=== PATIENT | female | born 1985 | race Caucasian/White ===

== ENCOUNTER 2016-12-16 09:06 | Emergency (ER) | payer BC, MEDICAID ==
[~2016-12-16] VITALS: Ht 167.6 cm; Wt 100.0 kg
[~2016-12-16 09:06] MED LIST: HYDR-3240 PO; ONDA4TAB7 PO; OXYC-302 PO; PREN1TAB56 PO
[2016-12-16] MEDS ORDERED: HYDROmorphone 1 MG/ML, 1ML ONE ×3 (09:52→13:20)
[2016-12-16] MEDS ORDERED: FAMOTIDINE 20 MG/2 ML ONE ×2 (09:53→09:57)
[2016-12-16] MEDS ORDERED: ONDANSETRON 2MG/ML, 2ML ONE ×2 (09:53→09:57)
[2016-12-16] MEDS ORDERED: ZIPRASIDONE 20 MG INJ IM ONE ×2 (09:54→10:00)
[2016-12-16] MEDS ORDERED: ONDANSETRON 2MG/ML, 2ML IVPush ONE (10:00)
[2016-12-16] MEDS ORDERED: FAMOTIDINE 20 MG/2 ML IVP ONE (10:00)
[2016-12-16] MEDS ORDERED: SODIUM CHLORIDE 0.9% 1,000ML IVBOLUS ONE (10:00)
[2016-12-16] MEDS: HYDROmorphone 1 MG/ML, 1ML IVPush PRN ×2 (10:02→13:25)
[2016-12-16 10:29] LABS: HEMOGLOBIN 15.5 g/dL (11.7-16.4); WHITE BLOOD COUNT 7.6 x10^3/uL (3.4-10)
[2016-12-16 10:38] LABS: ASPARTATE AMINO TRANSFERASE 15 U/L (15-37); BLOOD UREA NITROGEN 13 mg/dL (7-18)
[2016-12-16 14:43] VITALS: BP 97/51
== END 2016-12-16 14:44 | disposition home or self-care (01) ==
LOC: ED 11:53
DX: R10.84 Generalized abdominal pain (principal); E86.0 Dehydration; F17.210 Nicotine dependence, cigarettes, uncomplicated; F41.9 Anxiety disorder, unspecified; Z90.49 Acquired absence of other specified parts of digestive tract
CPT/HCPCS: 36415; 76830; 80053; 81001; 84703; 85025; 87086; 96361; 96372; 96374; 96375; 99285; J1170; J2405; J3486; J7030; S0028

== ENCOUNTER 2018-10-05 07:50 | Inpatient (IN) | payer MEDICAID ==
[~2018-10-05] VITALS: Ht 167.6 cm; Wt 100.0 kg
[2018-10-05] MEDS ORDERED: HALOPERIDOL 5 MG/ML ONE (08:29)
[2018-10-05] MEDS ORDERED: PROMETHAZINE 25 MG/ML, 1ML ONE (08:29)
[2018-10-05] MEDS ORDERED: DIPHENHYDRAMINE 50 MG/ML, 1ML ONE (08:29)
[2018-10-05] MEDS ORDERED: PROMETHAZINE 25 MG/ML, 1ML IM ONE (08:30)
[2018-10-05] MEDS ORDERED: DIPHENHYDRAMINE 50 MG/ML, 1ML IVPush ONE (08:30)
[2018-10-05] MEDS ORDERED: SODIUM CHLORIDE 0.9% 1,000ML IVBOLUS ONE (08:30)
[2018-10-05] MEDS ORDERED: HALOPERIDOL 5 MG/ML IM PRN (08:30)
--- NOTE | 2018-10-05 08:53 | NUR ---
MEDS GIVEN, IV INFUSING SLOWLY HOT PACK GIVEN.
[2018-10-05 09:00] LABS: BASOPHILS # (AUTO) 0.04 x10^3/uL (0-0.1); BASOPHILS % (AUTO) 1 % (0-1); EOSINOPHILS # (AUTO) 0.11 x10^3/uL (0-0.4); EOSINOPHILS % (AUTO) 1 % (1-7); LYMPHOCYTES # (AUTO) 2.27 x10^3/uL (1-3.4); LYMPHOCYTES % (AUTO) 27 % (22-44); MD NO; MEAN CORPUSCULAR HGB CONC 33.4 g/dL (32.4-35.8); MEAN CORPUSCULAR VOLUME 86.8 fL (80-100); MEAN PLATELET VOLUME 7.3 fL (7.4-10.4); MONOCYTES # (AUTO) 0.63 x10^3/uL (0.2-0.8); MONOCYTES % (AUTO) 8 % (2-9); NEUTROPHILS # (AUTO) 5.28 x10^3/uL (1.8-6.8); NEUTROPHILS % (AUTO) 63 % (42-75); PLATELET COUNT 310 x10^3/uL (130-400); RED BLOOD COUNT 5.19 x10^6/uL (3.82-5.3); RED CELL DISTRIBUTION WIDTH 12.3 % (9.6-15.2)
[2018-10-05 09:08] LABS: ANION GAP 8 mmol/L (5-15); CALCIUM 8.9 mg/dL (8.5-10.1); CHLORIDE 111 mmol/L (98-107); CREATININE 1.13 mg/dL (0.55-1.02)
[2018-10-05 09:09] LABS: ALANINE AMINOTRANSFERASE 26 U/L (12-78); ALBUMIN 4.2 g/dL (3.4-5.0)
[2018-10-05 09:11] LABS: ALKALINE PHOSPHATASE 87 U/L (45-117); BILIRUBIN,TOTAL 0.6 mg/dL (0.2-1.0); TOTAL PROTEIN 7.7 g/dL (6.4-8.2)
--- NOTE | 2018-10-05 09:37 | NUR ---
REPORT FROM FLOYD CLOUD, ASSUME CARE AT THIS TIME.
[2018-10-05 09:40] LABS: MICROSCOPIC NOT IND
[2018-10-05 09:59] LABS: CULTURE INDICATED? NO
[2018-10-05] MEDS ORDERED: METOCLOPRAMIDE 5 MG/ML, 2ML IVPush ONE (10:00)
[2018-10-05] MEDS ORDERED: KETOROLAC 30 MG/1 ML IVPush ONE (10:00)
[2018-10-05] MEDS ORDERED: METOCLOPRAMIDE 5 MG/ML, 2ML ONE (10:18)
[2018-10-05] MEDS ORDERED: KETOROLAC 30 MG/1 ML ONE (10:18)
--- NOTE | 2018-10-05 10:26 | NUR ---
PT MEDICATED FOR RETURNING NAUSEA AND PERSISTENT PAIN. PT GIVEN ADDITIONAL WARM BLANKET, PILLOW PER REQUEST. VS UPDATED IN COMPUTER.
--- NOTE | 2018-10-05 11:21 | NUR ---
ORDER FOR ADMIT IN COMPUTER.
[2018-10-05] MEDS ORDERED: ACETAMINOPHEN 325 MG TABLET PO PRN (12:00)
[2018-10-05] MEDS ORDERED: hydrALAzine 20 MG/ML, 1ML IVPush PRN (12:00)
[2018-10-05] MEDS ORDERED: GUAIFENESIN/COD200MG-20MG/10ML LIQUID PO PRN (12:00)
[2018-10-05] MEDS ORDERED: BUTALB/APAP/CAFFEINE 50MG/325MG/40MG PO PRN (12:00)
[2018-10-05] MEDS ORDERED: DOCUSATE 100 MG CAPSULE PO PRN (12:00)
[2018-10-05] MEDS ORDERED: METOCLOPRAMIDE 5 MG/ML, 2ML IVPush PRN (12:00)
--- NOTE | 2018-10-05 12:37 | NUR ---
REPORT TO CLYDE CLOUD, PT READY FOR TRANSPORT TO FLOOR.
[2018-10-05] MEDS: LACTATED RINGERS 1,000 ML IV SCH ×3 (13:07→23:32)
[2018-10-05] MEDS: ENOXAPARIN 40 MG/0.4 ML SQ SCH (13:30)
[2018-10-05 14:00] VITALS: BP 128/83
[2018-10-05] MEDS ORDERED: BUSP15TA PO (14:46)
[2018-10-05] MEDS ORDERED: HYDR50TA13 PO (14:46)
[2018-10-05] MEDS ORDERED: CYCL-259 PO (14:46)
[2018-10-05] MEDS ORDERED: VILA20TA PO (14:46)
[2018-10-05] MEDS: KETOROLAC 30 MG/1 ML IV PRN (15:39)
[2018-10-05] MEDS: ONDANSETRON 2MG/ML, 2ML IVPush PRN (15:39)
[2018-10-05 15:44] VITALS: BP 128/83
[2018-10-05 19:43] VITALS: BP 104/70
[2018-10-05] MEDS: DOXEPIN 100 MG CAPSULE PO SCH (20:16)
[2018-10-05] MEDS ORDERED: CYCLOBENZAPRINE 10 MG TABLET PO PRN (21:30)
[2018-10-06 02:19] VITALS: BP 113/73
[2018-10-06] MEDS: LACTATED RINGERS 1,000 ML IV SCH ×2 (04:44→12:44)
[2018-10-06 05:31] LABS: BASOPHILS # (AUTO) 0.04 x10^3/uL (0-0.1); BASOPHILS % (AUTO) 1 % (0-1); EOSINOPHILS # (AUTO) 0.17 x10^3/uL (0-0.4); EOSINOPHILS % (AUTO) 3 % (1-7); LYMPHOCYTES # (AUTO) 3.03 x10^3/uL (1-3.4); LYMPHOCYTES % (AUTO) 47 % (22-44); MD NO; MEAN CORPUSCULAR HEMOGLOBIN 29.1 pg (27.0-34.8); MEAN CORPUSCULAR VOLUME 88.4 fL (80-100); MEAN PLATELET VOLUME 7.2 fL (7.4-10.4); MONOCYTES # (AUTO) 0.52 x10^3/uL (0.2-0.8); MONOCYTES % (AUTO) 8 % (2-9); NEUTROPHILS # (AUTO) 2.76 x10^3/uL (1.8-6.8); NEUTROPHILS % (AUTO) 42 % (42-75); PLATELET COUNT 223 x10^3/uL (130-400); RED BLOOD COUNT 4.29 x10^6/uL (3.82-5.3); RED CELL DISTRIBUTION WIDTH 12.4 % (9.6-15.2)
[2018-10-06 05:40] LABS: ANION GAP 5 mmol/L (5-15); CALCIUM 7.8 mg/dL (8.5-10.1); CHLORIDE 111 mmol/L (98-107)
[2018-10-06 05:42] LABS: CREATININE 0.82 mg/dL (0.55-1.02)
[2018-10-06 08:00] VITALS: BP 148/104
[2018-10-06] MEDS ORDERED: BUPR1TAB SL (10:00)
[2018-10-06] MEDS: ONDANSETRON 2MG/ML, 2ML IVPush PRN ×2 (10:26→18:25)
[2018-10-06] MEDS: KETOROLAC 30 MG/1 ML IV PRN ×2 (10:26→18:25)
[2018-10-06] MEDS ORDERED: BUPRENORPHINE/NALOXONE 2-0.5MG SL PRN (10:30)
[2018-10-06] MEDS: VILAZODONE HYDROCHLORIDE 20 MG PO SCH (10:30)
[2018-10-06] MEDS: BUSPIRONE 5 MG TABLET PO SCH ×3 (11:00→21:27)
[2018-10-06] MEDS: CYCLOBENZAPRINE 10 MG TABLET PO SCH ×3 (11:35→21:26)
[2018-10-06] MEDS: hydrOXyzine 50MG TABLET PO SCH ×3 (11:35→21:26)
[2018-10-06] MEDS: ENOXAPARIN 40 MG/0.4 ML SQ SCH (13:30)
[2018-10-06 14:00] VITALS: BP 132/89
[2018-10-06 19:29] VITALS: BP 130/91
[2018-10-06] MEDS: DOXEPIN 100 MG CAPSULE PO SCH (19:57)
[2018-10-07] MEDS: LACTATED RINGERS 1,000 ML IV SCH (01:28)
[2018-10-07 01:59] VITALS: BP 115/81
[2018-10-07] MEDS: KETOROLAC 30 MG/1 ML IV PRN ×2 (05:55→11:45)
[2018-10-07] MEDS: ONDANSETRON 2MG/ML, 2ML IVPush PRN ×2 (05:56→11:45)
[2018-10-07] MEDS: hydrOXyzine 50MG TABLET PO SCH ×2 (05:56→11:45)
[2018-10-07] MEDS: BUSPIRONE 5 MG TABLET PO SCH ×2 (05:56→11:45)
[2018-10-07 06:41] VITALS: BP 137/95
[2018-10-07 06:46] LABS: ANION GAP 8 mmol/L (5-15); CALCIUM 8.1 mg/dL (8.5-10.1); CHLORIDE 110 mmol/L (98-107); CREATININE 0.85 mg/dL (0.55-1.02)
[2018-10-07] MEDS: VILAZODONE HYDROCHLORIDE 20 MG PO SCH ×2 (07:35→09:00)
[2018-10-07] MEDS: ENOXAPARIN 40 MG/0.4 ML SQ SCH (07:36)
[2018-10-07] MEDS: CYCLOBENZAPRINE 10 MG TABLET PO SCH (08:40)
[2018-10-07 13:05] VITALS: BP 134/87
== END 2018-10-07 15:10 | disposition home or self-care (01) | DRG 684 ==
LOC: ED 08:07 → EDIP 11:04 → INTOOBSV 11:04 → 3NE 12:54 → OBSVTOIN 10-06 12:11 → DCLOUNGE 10-07 15:02
PROVIDERS: ADMIT Internal Medicine; ATTEND Internal Medicine
DX: N17.9 Acute kidney failure, unspecified (principal); F17.210 Nicotine dependence, cigarettes, uncomplicated; F12.90 Cannabis use, unspecified, uncomplicated; E86.0 Dehydration; E66.9 Obesity, unspecified; Z82.0 Family history of epilepsy and other diseases of the nervous system; Z85.42 Personal history of malignant neoplasm of other parts of uterus; Z90.710 Acquired absence of both cervix and uterus; Z79.899 Other long term (current) drug therapy; Z90.49 Acquired absence of other specified parts of digestive tract; Z90.722 Acquired absence of ovaries, bilateral; Z68.35 Body mass index [BMI] 35.0-35.9, adult; Z88.5 Allergy status to narcotic agent
CPT/HCPCS: 36415; 74018; 96361; 99285; J0572; 80048; 80053; 81003; 83690; 83735; 85025; 93005; 96372; 96374; 96375; G0378; J1885; J2405; J2550; J1200; J1630; J2765; J7030; J7120